=== PATIENT | female | born 1940 | race Caucasian/White ===

== ENCOUNTER → 2019-05-17 09:50 | Outpatient (CLI) | payer MEDICARE | END | disposition home or self-care (01) | LOC: D.HCCECHO 09:50 | PROVIDERS: ATTEND Internal Medicine Interventional Cardiology | DX: I10 Essential (primary) hypertension (principal) ==

== ENCOUNTER → 2020-06-21 14:08 | Outpatient (CLI) | payer MEDICARE ==
--- NOTE | 2020-06-22 07:55 | EC ---
PATIENT:JACQUELYN DEL TORO DATE OF SERVICE: 06/21/20 SEX: F MEDICAL RECORD: [id number] DATE OF : 44 [facility] AGE OF PATIENT: 79 ADMISSION DATE: 06/21/20 REFERRING PHYSICIAN: INTERPRETING PHYSICIAN: DENISSE JALLOH MD ECHOCARDIOGRAM REPORT ECHO CHARGES 4 ECHO COMPLETE Date: 06/21/20 CLINICAL DIAGNOSIS: HX OF HTN AND SVT, ASSESS EF/ MR/TR/AI/PI ECHOCARDIOGRAPHIC MEASUREMENTS (adult normal given) AC root (d.<3.7cm) 3.8 cm LV Septum d (<1.2 cm> 1.1 cm Valve Excursion 1.6 cm LV Septum (systole) 1.3 cm Left Atria (s.<4.0cm> 4.0 cm LVPW d(<1.2cm) 1.1 cm RV (d.<2.3cm) 4.4 cm LVPW (sytole) 1.6 cm LV diastole(<5.6CM) 4.8 cm MV E-F(>70mm/sec) cm LV systole 2.5 cm LVOT Diameter 1.8 cm MV exc.(>10mm) 1.1 cm Est.ejection fraction (50-75%) % DOPPLER: LVIT cm/sec A 84.0 cm/sec E 58.0 cm/sec LA cm/sec RVSP 32 mmHg LVOT 129 cm/sec AOP1/2T 595 m/s Asc. Ao 158 cm/sec RVOT 81 cm/sec RA cm/sec PA 109 cm/sec AV Gradient Peak 10.03mmHg AV Mean 5.02 mmHg AV Area 2.4 cm MV Gradient Peak 3.71 mmHg MV Mean 1.35 mmHg MV Area cm COMMENTS: Fieldwork Coordinator: 2 JESSICA TELLO Kiln Burner Helper: 3 Dr. Godoy TAPE# PACS Pericardial Effusion N DATE OF SERVICE: Adequate 2D, color flow imaging, spectral Doppler, and M-Mode. FINDINGS: No LVH. LV internal dimensions are normal. Wall motion is normal. EF is greater than or equal to 55%. Aortic valve is tricuspid. No evidence of stenosis by Doppler interrogation. Left atrium is normal. Mitral valve shows no prolapse. Trivial MR. Right side is grossly normal. Trivial TR. TRANSINT:[id number] Voice Confirmation ID: [id number] DOCUMENT ID: [id number] ECHOCARDIOGRAM REPORT [id number] JACQUELYN DEL TORO,DENISSE Lubin MD at 0755 CC: [id number] DICTATION DATE: 06/21/20 163 GOLF COACH: 06/21/20 1708 DEP CLI 06/21/20 [place] [id number] [place] [id number]
== END | disposition home or self-care (01) ==
LOC: D.HCCECHO 06-05 13:00
PROVIDERS: ATTEND Internal Medicine Interventional Cardiology
DX: I10 Essential (primary) hypertension (principal)